=== PATIENT | male | born 1960 | race American Indian/Alaskan Native ===

== ENCOUNTER 2016-11-15 13:59 | Emergency (ER) | payer MEDICAID ==
[2016-11-15 14:26] VITALS: BP 169/121
[2016-11-15] MEDS ORDERED: ZOFRAN ODT PO ONE (16:38)
[2016-11-15] MEDS ORDERED: NORCO 5/325 PO ONE (16:39)
--- NOTE | 2016-11-15 16:39 | Emergency Department Report ---
ED Back Pain/Injury HPI - General Chief Complaint: Back Pain/Injury Stated Complaint: BACK PAIN Time Seen by Provider: 11/15/16 16:29 Source: patient Limitations: No Limitations - History of Present Illness Initial Comments: 56-year-old male past medical history hypertension, chronic lower back pain presents with complaint of 2-3 days of acute on chronic lower back pain. Patient denies any saddle paresthesias any nausea or vomiting any dysuria or increased urinary frequency. Patient states he was taking [id number] medicines with minimal relief of his pain. Patient is ambulatory without assistance. MD Complaint: back pain Onset/Timin -: days(s) Place: home Radiation: none Severity scale (0 -10): 7 Quality: dull, aching Consistency: constant Improves With: immobilization Worsens With: movement Context: while lifting, turning/twisting, bending - Related Data Previous Rx's Medication Instructions Recorded Last Taken Type Cyclobenzaprine [Flexeril 10mg] 10 mg PO TID PRN #14 tablet 10/27/13 Unknown Rx Docusate Sodium [Colace] 100 mg PO BID PRN #20 capsule 07/10/14 Unknown Rx methOCARBAMOL [Robaxin] 500 mg PO BID #14 tab 07/10/14 Unknown Rx traMADol [Ultram 50 MG tab] 50 mg PO Q4HR PRN #20 tablet 07/10/14 Unknown Rx ALBUTEROL Inhaler [Proair] 2 puff IH QID PRN #1 inhalation 09/04/15 Unknown Rx Amoxicillin [Trimox CAP] 500 mg PO BID #14 capsule 09/04/15 Unknown Rx Benzonatate [Tessalon Perles] 100 mg PO Q8HR #30 capsule 09/04/15 Unknown Rx amLODIPine [Norvasc] 5 mg PO DAILY #90 tab 09/04/15 Unknown Rx Cyclobenzaprine [Flexeril] 10 mg PO TID PRN #12 tablet 11/15/16 Unknown Rx HYDROcodone/APAP 5-325 [[place] 1 each PO Q6HR PRN #15 tablet 11/15/16 Unknown Rx 5/325] Naproxen [Naprosyn TAB] 500 mg PO BID #30 tablet 11/15/16 Unknown Rx Allergies Allergy/AdvReac Type Severity Reaction Status Date / Time No Known Allergies Allergy Unverified 10/27/13 15:21 ED Review of Systems ROS: Stated complaint: BACK PAIN Other details as noted in HPI Constitutional: denies: chills, fever Eyes: denies: eye pain, eye discharge, vision change ENT: denies: ear pain, throat pain Respiratory: denies: cough, shortness of breath, wheezing Cardiovascular: denies: chest pain, palpitations Endocrine: no symptoms reported Gastrointestinal: denies: abdominal pain, nausea, diarrhea Genitourinary: denies: urgency, dysuria Musculoskeletal: as per HPI, back pain. denies: joint swelling, arthralgia Skin: denies: rash, lesions Neurological: denies: headache, weakness, paresthesias Psychiatric: denies: anxiety, depression Hematological/Lymphatic: denies: easy bleeding, easy bruising ED Past Medical Hx - Past Medical History Previous Medical History?: Yes Hx Hypertension: Yes (non complaint with medication) Additional medical history: Chronic low back pain since 2009 - Surgical History Past Surgical History?: Yes Additional Surgical History: spinal fussion L4,L5: 2009 - Social History Smoking Status: Current Every Day Smoker Substance Use Type: Alcohol - Medications Home Medications: Home Medications Medication Instructions Recorded Confirmed Last Taken Type Cyclobenzaprine [Flexeril 10mg] 10 mg PO TID PRN #14 tablet 10/27/13 Unknown Rx Docusate Sodium [Colace] 100 mg PO BID PRN #20 capsule 07/10/14 Unknown Rx methOCARBAMOL [Robaxin] 500 mg PO BID #14 tab 07/10/14 Unknown Rx traMADol [Ultram 50 MG tab] 50 mg PO Q4HR PRN #20 tablet 07/10/14 Unknown Rx ALBUTEROL Inhaler [Proair] 2 puff IH QID PRN #1 inhalation 09/04/15 Unknown Rx Amoxicillin [Trimox CAP] 500 mg PO BID #14 capsule 09/04/15 Unknown Rx Benzonatate [Tessalon Perles] 100 mg PO Q8HR #30 capsule 09/04/15 Unknown Rx amLODIPine [Norvasc] 5 mg PO DAILY #90 tab 09/04/15 Unknown Rx Cyclobenzaprine [Flexeril] 10 mg PO TID PRN #12 tablet 11/15/16 Unknown Rx HYDROcodone/APAP 5-325 [[place] 1 each PO Q6HR PRN #15 tablet 11/15/16 Unknown Rx 5/325] Naproxen [Naprosyn TAB] 500 mg PO BID #30 tablet 11/15/16 Unknown Rx ED Physical Exam - General Limitations: No Limitations General appearance: alert, in no apparent distress - Head Head exam: Present: atraumatic, normocephalic - Eye Eye exam: Present: normal appearance, PERRL, EOMI - ENT ENT exam: Present: mucous membranes moist - Neck Neck exam: Present: normal inspection, full ROM - Respiratory Respiratory exam: Present: normal lung sounds bilaterally. Absent: respiratory distress - Cardiovascular Cardiovascular Exam: Present: regular rate, normal rhythm. Absent: systolic murmur, diastolic murmur, rubs, gallop - GI/Abdominal GI/Abdominal exam: Present: soft, normal bowel sounds - Rectal Rectal exam: Present: deferred - Extremities Exam Extremities exam: Present: normal inspection - Back Exam Back exam: Present: normal inspection - Expanded Back Exam Expanded Back exam: Positive Straight Leg Raise: Left (positive at 30) - Neurological Exam Neurological exam: Present: alert, oriented X3, CN II-XII intact, normal gait - Expanded Neurological Exam Expanded Patient oriented to: Present: person, place, time Cranial nerves: EOM's Intact: Normal Motor strength exam: RUE: 5, LUE: 5, RLE: 5, LLE: 5 DTR: knee (R): 3+, knee (L): 3+ Best Eye Response ([place]): (4) open spontaneously Best Motor Response ([place]): (6) obeys commands Best Verbal Response ([place]): (5) oriented [place] Total: 15 - Psychiatric Psychiatric exam: Present: normal affect, normal mood - Skin Skin exam: Present: warm, dry, intact, normal color. Absent: rash ED Course Vital Signs 11/15/16 11/15/16 14:20 18:46 Temperature 98.4 F Pulse Rate 95 H 80 Respiratory 24 18 Rate Blood Pressure 169/121 O2 Sat by Pulse 98 99 Oximetry ED Medical Decision Making - Medical Decision Making A/P: Acute on chronic lower back pain 1- CT report consistent with chronic degenerative changes and L-spine region 2- patient feels significant relief with analgesics 3-follow up with primary care and spine surgery Critical care attestation.: If time is entered above; I have spent that time in minutes in the direct care of this critically ill patient, excluding procedure time. ED Disposition Clinical Impression: Renal colic on right side Lower back pain Qualifiers: Chronicity: acute Back pain laterality: bilateral Sciatica presence: without sciatica Qualified Code(s): M54.5 - Low back pain Disposition: TO HOME OR SELFCARE Is pt being admited?: No Does the pt Need Aspirin: No Condition: Stable Instructions: Acute Low Back Pain (ED), Chronic Back Pain (ED), Back Pain (ED) Prescriptions: Cyclobenzaprine [Flexeril] 10 mg PO TID PRN #12 tablet PRN Reason: Muscle Spasm HYDROcodone/APAP 5-325 [[place] 5/325] 1 each PO Q6HR PRN #15 tablet PRN Reason: Pain Naproxen [Naprosyn TAB] 500 mg PO BID #30 tablet Referrals: ELIZA MONGE MD [Staff Physician] - 3-5 Days BHARAT HOLLEY MD [Staff Physician] - 3-5 Days Forms: Work/School Release Form(ED)
--- NOTE | 2016-11-15 17:41 | Cat Scan Report ---
FINAL REPORT PROCEDURE: CT ABDOMEN PELVIS WO CON TECHNIQUE: Computerized axial tomography of the abdomen and pelvis was performed without intravenous contrast. This study is performed without intravascular contrast material and its sensitivity for abdominal and pelvic pathology, including neoplasms, inflammation, abscess, free fluid, thrombosis, arterial dissection and infarction, is reduced compared with a contrast enhanced study. HISTORY: Possible right sided renal stone. Lumbar spine surgery. COMPARISON: No prior studies are available for comparison. FINDINGS: Visualized lower thorax: Bibasilar ground-glass opacities with air trapping. Liver: Mild hepatomegaly. Mild low-attenuation of the liver. Spleen: Small splenule. Gallbladder and biliary system: Subtle dependent high attenuation in the gallbladder. Pancreas: Normal. Adrenals: 12 millimeter low-attenuation left adrenal nodule. Kidneys: Normal. GI tract: Small hiatal hernia. Normal caliber appendix. Focally air-filled distended sigmoid colon. Lymph nodes and mesentery: Small scattered mesenteric lymph nodes. Vasculature: Mild atherosclerosis. Bladder: Normal. Reproductive organs: Mild prostatic enlargement. Peritoneum: No free fluid. Musculoskeletal structures: L3-4 and L4-5 anterior fusion with disc spacer. Slight age terminal L3 compression. Slight irregularity and osteophytes of the superior L3 endplate. Small multilevel osteophytes throughout the thoracic lumbar spine. Mild thecal sac effacement at the disc level at L L3-4 and L4-5. Mild diffuse disc bulge at L5-S1. Slight L3-4 and L4-5 canal stenosis. L3-4 mild foraminal narrowing, to a slightly lesser degree at L4-5 which may be slightly more left-sided. L5-S1 mild facet arthropathy. Mild degenerative changes of the sacroiliac joints with mild sclerosis. Mild narrowing and osteophytes of the bilateral hip joints. Other: Pelvic phleboliths. IMPRESSION: No CT evidence of renal/ureteral stone or obstruction. Bibasilar ground-glass opacities with mild air trapping, consider pneumonitis. Mild hepatomegaly with fatty infiltration of the liver. Subtle dependent high attenuation in the gallbladder, consider right upper quadrant ultrasound. Low-attenuation left adrenal nodule, likely adenoma. Consider adrenal protocol MRI with inphase and out of phase imaging if there is continued clinical concern and patient has no contraindication to MRI. Small hiatal hernia. Focally air-filled distended sigmoid colon, likely normal peristalsis. Consider further evaluation including contrasted CT scan or colonoscopy if there is continued clinical concern. Degenerative and postsurgical changes of the lumbar spine as above. Mild degenerative changes of the sacroiliac joints with sclerosis, also consider mild superimposed sacroiliitis. Other incidental findings as above.
[2016-11-15 17:47] LABS: Bilirubin,Urine NEG (Negative); Blood,Urine NEG (Negative); Ketones,Urine NEG (Negative); Leukocyte Esterase,Urine NEG (Negative); Nitrite,Urine NEG (Negative); Urobilinogen,Urine < 2.0 mg/dL (<2.0)
== END 2016-11-15 18:46 | disposition home or self-care (01) ==
LOC: ED 13:59
DX: M54.5 Low back pain (principal); I10 Essential (primary) hypertension; F17.200 Nicotine dependence, unspecified, uncomplicated; G89.29 Other chronic pain; M43.27 Fusion of spine, lumbosacral region
CPT/HCPCS: 74176; 81001; Q0162

== ENCOUNTER 2019-01-01 12:52 | Inpatient (IN) | payer MEDICAID, OTHER ==
--- NOTE | 2019-01-01 13:45 | Event Note ---
ED Screening Note Date of service: 01/01/19 Time: 13:42 ED Screening Note: 58 y o male presents with freq urination, polydipsia and intermittent dizziness This initial assessment/diagnostic orders/clinical plan/treatment(s) is/are subject to change based on patients health status, clinical progression and re- assessment by fellow clinical providers in the ED. Further treatment and workup at subsequent clinical providers discretion. Patient/guardian urged not to elope from the ED as their condition may be serious if not clinically assessed and managed. Initial orders include: labs, ua fs
[2019-01-01] MEDS ORDERED: SODIUM CHLORIDE 0.9% 1000 ML 1,000 ML IV ONE ×3 (14:39→16:15)
[2019-01-01 14:40] LABS: Bilirubin,Urine NEG (Negative); Blood,Urine NEG (Negative); Color,Urine Yellow (Yellow); Mucus,Urine FEW /HPF; Protein,Urine <15 mg/dL mg/dL (Negative); Urobilinogen,Urine < 2.0 mg/dL (<2.0); WBC,Urine < 1.0 /HPF (0.0-6.0)
[2019-01-01 14:43] LABS: RBC,Urine < 1.0 /HPF (0.0-6.0)
[2019-01-01 14:46] LABS: Hematocrit 50.6 % (35.5-45.6); Hemoglobin 16.8 gm/dl (11.8-15.2); Mean Corpuscular HGB Conc 33 % (32-34); Mean Corpuscular Volume 88 fl (84-94); Red Blood Count 5.72 M/mm3 (3.65-5.03)
[2019-01-01 15:35] LABS: Alanine Aminotransferase 47 units/L (7-56); Albumin 4.7 g/dL (3.9-5); BUN/Creatinine Ratio 28; Blood Urea Nitrogen 33 mg/dL (9-20); Calcium 9.8 mg/dL (8.4-10.2); Hemolysis Index 40
[2019-01-01] MEDS ORDERED: INSULIN REGULAR, HUMAN 100 UNITS/1 ML IV ONE (16:15)
--- NOTE | 2019-01-01 16:30 | Emergency Department Report ---
ED General Adult HPI - General Chief complaint: Dizziness Stated complaint: POSS POISON Time Seen by Provider: 01/01/19 13:39 Source: patient Mode of arrival: Ambulatory Limitations: No Limitations - History of Present Illness Initial comments: Patient is a 58-year-old Citizen Of The [place] male with a past history of alcohol abuse who is here secondary to some dizziness. Patient states decreased appetite mild headache and some blurred vision for the past 2-3 weeks. Patient also is complaining of some 18 pound weight loss over the two-week period. Patient had some urinary frequency without dysuria and increased thirst. Patient has a history of being told he is borderline diabetic with [facility] Patient attributed his symptoms to possible alcohol withdrawal. Patient has not had any alcohol for last 2-3 weeks. Patient has a history of heavy drinking. - Related Data Previous Rx's Medication Instructions Recorded Last Taken Type Cyclobenzaprine [Flexeril 10mg] 10 mg PO TID PRN #14 tablet 10/27/13 Unknown Rx Docusate Sodium [Colace] 100 mg PO BID PRN #20 capsule 07/10/14 Unknown Rx methOCARBAMOL [Robaxin] 500 mg PO BID #14 tab 07/10/14 Unknown Rx traMADol [Ultram 50 MG tab] 50 mg PO Q4HR PRN #20 tablet 07/10/14 Unknown Rx ALBUTEROL Inhaler (OR & NICU) 2 puff IH QID PRN #1 inhalation 09/04/15 Unknown Rx [Proair] Amoxicillin [Trimox CAP] 500 mg PO BID #14 capsule 09/04/15 Unknown Rx Benzonatate [Tessalon Perles] 100 mg PO Q8HR #30 capsule 09/04/15 Unknown Rx amLODIPine [Norvasc] 5 mg PO DAILY #90 tab 09/04/15 Unknown Rx Cyclobenzaprine [Flexeril] 10 mg PO TID PRN #12 tablet 11/15/16 Unknown Rx HYDROcodone/APAP 5-325 [[place] 1 each PO Q6HR PRN #15 tablet 11/15/16 Unknown Rx 5/325] Naproxen [Naprosyn TAB] 500 mg PO BID #30 tablet 11/15/16 Unknown Rx Allergies Allergy/AdvReac Type Severity Reaction Status Date / Time No Known Allergies Allergy Unverified 10/27/13 15:21 ED Review of Systems ROS: Stated complaint: POSS POISON Other details as noted in HPI Comment: All other systems reviewed and negative ED Past Medical Hx - Past Medical History Hx Hypertension: Yes (non complaint with medication) Hx Diabetes: Yes (BOARDERLINE) Additional medical history: Chronic low back pain since 2009 - Surgical History Additional Surgical History: spinal fussion L4,L5: 2009 - Social History Smoking Status: Current Every Day Smoker Substance Use Type: None - Medications Home Medications: Home Medications Medication Instructions Recorded Confirmed Last Taken Type Cyclobenzaprine [Flexeril 10mg] 10 mg PO TID PRN #14 tablet 10/27/13 Unknown Rx Docusate Sodium [Colace] 100 mg PO BID PRN #20 capsule 07/10/14 Unknown Rx methOCARBAMOL [Robaxin] 500 mg PO BID #14 tab 07/10/14 Unknown Rx traMADol [Ultram 50 MG tab] 50 mg PO Q4HR PRN #20 tablet 07/10/14 Unknown Rx ALBUTEROL Inhaler (OR & NICU) 2 puff IH QID PRN #1 inhalation 09/04/15 Unknown Rx [Proair] Amoxicillin [Trimox CAP] 500 mg PO BID #14 capsule 09/04/15 Unknown Rx Benzonatate [Tessalon Perles] 100 mg PO Q8HR #30 capsule 09/04/15 Unknown Rx amLODIPine [Norvasc] 5 mg PO DAILY #90 tab 09/04/15 Unknown Rx Cyclobenzaprine [Flexeril] 10 mg PO TID PRN #12 tablet 11/15/16 Unknown Rx HYDROcodone/APAP 5-325 [[place] 1 each PO Q6HR PRN #15 tablet 11/15/16 Unknown Rx 5/325] Naproxen [Naprosyn TAB] 500 mg PO BID #30 tablet 11/15/16 Unknown Rx ED Physical Exam - General Limitations: No Limitations General appearance: alert, in no apparent distress - Head Head exam: Present: atraumatic, normocephalic - Eye Eye exam: Present: normal appearance - ENT ENT exam: Present: mucous membranes moist - Neck Neck exam: Present: normal inspection - Respiratory Respiratory exam: Present: normal lung sounds bilaterally. Absent: respiratory distress, wheezes, rales, rhonchi - Cardiovascular Cardiovascular Exam: Present: regular rate, normal rhythm, normal heart sounds. Absent: systolic murmur, diastolic murmur, rubs, gallop - GI/Abdominal GI/Abdominal exam: Present: soft, normal bowel sounds. Absent: distended, tenderness, guarding, rebound - Rectal Rectal exam: Present: deferred - Extremities Exam Extremities exam: Present: normal inspection - Back Exam Back exam: Present: normal inspection - Neurological Exam Neurological exam: Present: alert, oriented X3 - Psychiatric Psychiatric exam: Present: normal affect, normal mood - Skin Skin exam: Present: warm, dry, intact, normal color. Absent: rash ED Course Vital Signs 01/01/19 13:38 Temperature 98.9 F Pulse Rate 114 H Respiratory 18 Rate Blood Pressure 136/90 O2 Sat by Pulse 96 Oximetry ED Medical Decision Making - Lab Data Result diagrams: 01/01/19 13:51 01/01/19 13:51 Lab Results 01/01/19 01/01/19 01/01/19 Range/Units 13:34 13:51 13:51 RBC 5.72 H (3.65-5.03) M/mm3 Hgb 16.8 H (11.8-15.2) gm/dl Hct 50.6 H (35.5-45.6) % MCV 88 (84-94) fl MCH 29 (28-32) pg MCHC 33 (32-34) % RDW 13.0 L (13.2-15.2) % VBG pH (7.320-7.420) Sodium 122 L (137-145) mmol/L Potassium 5.3 H (3.6-5.0) mmol/L Chloride 80.0 L (98-107) mmol/L Carbon Dioxide 16 L (22-30) mmol/L Anion Gap 31 mmol/L BUN 33 H (9-20) mg/dL Creatinine 1.2 (0.8-1.5) mg/dL Estimated GFR > 60 ml/min BUN/Creatinine Ratio 28 % Glucose 1000 H* (75-100) mg/dL POC Glucose (70-105) Calcium 9.8 (8.4-10.2) mg/dL Total Bilirubin 0.40 (0.1-1.2) mg/dL AST 36 (5-40) units/L ALT 47 (7-56) units/L Alkaline Phosphatase 110 (35-129) units/L Total Protein 8.4 H (6.3-8.2) g/dL Albumin 4.7 (3.9-5) g/dL Albumin/Globulin Ratio 1.3 % Urine Color Yellow (Yellow) Urine Turbidity Clear (Clear) Urine pH 5.0 (5.0-7.0) Ur Specific [employer] 1.023 (1.003-1.030) Urine Protein <15 mg/dl (Negative) mg/dL Urine Glucose (UA) >=500 (Negative) mg/dL Urine Ketones Tr (Negative) mg/dL Urine Blood Neg (Negative) Urine Nitrite Neg (Negative) Urine Bilirubin Neg (Negative) Urine Urobilinogen < 2.0 (<2.0) mg/dL Ur Leukocyte Esterase Neg (Negative) Urine WBC (Auto) < 1.0 (0.0-6.0) /HPF Urine RBC (Auto) < 1.0 (0.0-6.0) /HPF Urine Mucus Few /HPF 01/01/19 01/01/19 Range/Units 14:45 15:06 RBC (3.65-5.03) M/mm3 Hgb (11.8-15.2) gm/dl Hct (35.5-45.6) % MCV (84-94) fl MCH (28-32) pg MCHC (32-34) % RDW (13.2-15.2) % VBG pH 7.375 (7.320-7.420) Sodium (137-145) mmol/L Potassium (3.6-5.0) mmol/L Chloride (98-107) mmol/L Carbon Dioxide (22-30) mmol/L Anion Gap mmol/L BUN (9-20) mg/dL Creatinine (0.8-1.5) mg/dL Estimated GFR ml/min BUN/Creatinine Ratio % Glucose (75-100) mg/dL POC Glucose > 500 H (70-105) Calcium (8.4-10.2) mg/dL Total Bilirubin (0.1-1.2) mg/dL AST (5-40) units/L ALT (7-56) units/L Alkaline Phosphatase (35-129) units/L Total Protein (6.3-8.2) g/dL Albumin (3.9-5) g/dL Albumin/Globulin Ratio % Urine Color (Yellow) Urine Turbidity (Clear) Urine pH (5.0-7.0) Ur Specific [employer] (1.003-1.030) Urine Protein (Negative) mg/dL Urine Glucose (UA) (Negative) mg/dL Urine Ketones (Negative) mg/dL Urine Blood (Negative) Urine Nitrite (Negative) Urine Bilirubin (Negative) Urine Urobilinogen (<2.0) mg/dL Ur Leukocyte Esterase (Negative) Urine WBC (Auto) (0.0-6.0) /HPF Urine RBC (Auto) (0.0-6.0) /HPF Urine Mucus /HPF - Medical Decision Making Patient was started on IV hydration secondary to a blood sugar greater than 500 by Accu-Chek. Insulin was withheld until the potassium level returned. Blood sugar was thousand and potassium is within normal limits. Patient was given IV insulin and will be admitted to the hospitalist service. Critical Care Time: Yes (30) Critical care attestation.: If time is entered above; I have spent that time in minutes in the direct care of this critically ill patient, excluding procedure time. ED Disposition Clinical Impression: Hyperosmolarity due to secondary diabetes mellitus, Hyperglycemia, Acute renal insufficiency, Dehydration Disposition: DC-09 OP ADMIT IP TO THIS HOSP Is pt being admited?: Yes Does the pt Need Aspirin: No Condition: Stable Instructions: Diabetes Mellitus Type 2 in Adults (ED) Referrals: PRIMARY CARE, [Primary Care Provider] - 3-5 Days Time of Disposition: 16:30
[2019-01-01] MEDS ORDERED: ALBUTEROL 2.5 MG/3 ML NEBU IH PRN (16:42)
[2019-01-01] MEDS ORDERED: DEXTROSE 50% IN WATER (25GM) 50 ML SYRINGE IV PRN (16:42)
[2019-01-01 16:44] LABS: Basophils % (Manual) 0 % (0.0-1.8); Total Cells Counted 100
[2019-01-01 16:45] LABS: Anisocytosis 1+; Poikilocytosis Few
[2019-01-01] MEDS ORDERED: SODIUM BICARB 8.4% 50 MEQ/50 ML SYRINGE IV ONE (16:46)
--- NOTE | 2019-01-01 16:46 | History and Physical Report ---
History of Present Illness Chief complaint: I think mehreen been poisoned History of present illness: 58 YO Male with DM, Obesity, HTN, LDD complicated by Chronic Pain presents to ED for evaluation. Pt states that he has been feeling "sick" for the past 2-3 weeks. Pt states that he has experienced polydipsia, polyuria, and polyphagia, dizziness, nausea, and decreased appetite over the past 1month with progressively worsening symptoms over the past 2-3 weeks. Pt states that he thinks he has been poisoned because he is so thirsty, and urinates frequently. Pt also acknowledges 18obs unintentional weight loss over the past 1 month. Pt transported to [facility] via private vehicle. Pt seen and evaluated in ED and found to have DKA. Pt admitted to ICU and initiated on DKA protocol. Pt also treated with IVF resuscitation therapy and IV bicarbonate therapy. PT denies fever, chills, CP, Palpitations, Trauma, BRBPR, Productive cough, skin rash, or recent ill contacts. No prior admission for review. All listed medication reconciled at time of admission. Past History Past Medical History: diabetes, hypertension, other (LDD, Chronic Back pain) Social history: smoking, alcohol abuse Family history: diabetes, hypertension Medications and Allergies Allergies Allergy/AdvReac Type Severity Reaction Status Date / Time No Known Allergies Allergy Unverified 10/27/13 15:21 Home Medications Medication Instructions Recorded Confirmed Last Taken Type Cyclobenzaprine [Flexeril 10mg] 10 mg PO TID PRN #14 tablet 10/27/13 Unknown Rx Docusate Sodium [Colace] 100 mg PO BID PRN #20 capsule 07/10/14 Unknown Rx methOCARBAMOL [Robaxin] 500 mg PO BID #14 tab 07/10/14 Unknown Rx traMADol [Ultram 50 MG tab] 50 mg PO Q4HR PRN #20 tablet 07/10/14 Unknown Rx ALBUTEROL Inhaler (OR & NICU) 2 puff IH QID PRN #1 inhalation 09/04/15 Unknown Rx [Proair] Amoxicillin [Trimox CAP] 500 mg PO BID #14 capsule 09/04/15 Unknown Rx Benzonatate [Tessalon Perles] 100 mg PO Q8HR #30 capsule 09/04/15 Unknown Rx amLODIPine [Norvasc] 5 mg PO DAILY #90 tab 09/04/15 Unknown Rx Cyclobenzaprine [Flexeril] 10 mg PO TID PRN #12 tablet 11/15/16 Unknown Rx HYDROcodone/APAP 5-325 [[place] 1 each PO Q6HR PRN #15 tablet 11/15/16 Unknown Rx 5/325] Naproxen [Naprosyn TAB] 500 mg PO BID #30 tablet 11/15/16 Unknown Rx Active Meds: Active Medications Albuterol (Proventil) 2.5 mg IH Q3HRT PRN PRN Reason: Shortness Of Breath Dextrose (D50w (25gm) Syringe) 0 ml IV ONCE PRN PRN Reason: Hypoglycemia Sodium Chloride (Nacl 0.9% 1000 Ml) 1,000 mls @ 999 mls/hr IV BOLUS ONE Stop: 01/01/19 17:15 Last Admin: 01/01/19 16:37 Dose: 999 mls/hr Documented by: Insulin Human Regular 100 (units/ Sodium Chloride) 100 mls @ 1 mls/hr IV TITR LIAN; Protocol Sodium Chloride (Sodium Chloride Flush Syringe 10 Ml) 10 ml IV BID LIAN Sodium Chloride (Sodium Chloride Flush Syringe 10 Ml) 10 ml IV PRN PRN PRN Reason: LINE FLUSH Review of Systems Constitutional: weight loss, no weight gain, no fever, no chills, no sweats Ears, nose, mouth and throat: no ear pain, no ear discharge, no tinnitis, no decreased hearing, no nose pain, no nasal congestion, no nasal discharge Cardiovascular: no chest pain, no orthopnea, no palpitations, no rapid/irregular heart beat Respiratory: no cough, no cough with sputum, no excessive sputum, no hemoptysis, no shortness of breath, no dyspnea on exertion Gastrointestinal: nausea, no vomiting, no diarrhea, no constipation, no change in bowel habits Genitourinary Male: no dysuria, no hematuria, no flank pain, no discharge, no urinary frequency, no urinary hesitancy, no nocturia Rectal: no pain, no incontinence, no bleeding Musculoskeletal: no neck stiffness, no neck pain, no shooting arm pain, no arm numbness/tingling, no low back pain Integumentary: no rash, no pruritis, no redness, no sores, no wounds, no jaundice Neurological: no transient paralysis, no paralysis, no weakness, no parathesias, no numbness, no tingling, no seizures Psychiatric: no anxiety, no memory loss, no change in sleep habits, no sleep disturbances, no insomnia Endocrine: polyphagia, excessive thirst, polydipsia, polyuria, nocturia, weight change, no cold intolerance, no heat intolerance, no excessive sweating, no flushing Hematologic/Lymphatic: no easy bruising, no easy bleeding, no lymphadenopathy, no lymphedema Allergic/Immunologic: no urticaria, no allergic rhinitis, no wheezing, no persistent infections, no anaphylaxis, no angioedema Exam - Constitutional Vitals: Temp Pulse Resp BP Pulse Ox 98.9 F 114 H 18 136/90 96 01/01/19 13:38 01/01/19 13:38 01/01/19 13:38 01/01/19 13:38 01/01/19 13:38 General appearance: Present: mild distress, obese - EENT Eyes: Present: PERRL ENT: hearing intact, clear oral mucosa - Neck Neck: Present: supple, normal ROM - Respiratory Respiratory effort: normal Respiratory: bilateral: CTA - Cardiovascular Heart Sounds: Present: S1 & S2. Absent: rub, click - Extremities Extremities: pulses symmetrical, No edema Peripheral Pulses: within normal limits - Abdominal General gastrointestinal: Present: soft, non-tender, non-distended, normal bowel sounds Male genitourinary: Present: normal - Integumentary Integumentary: Present: clear, warm, dry - Musculoskeletal Musculoskeletal: gait normal, strength equal bilaterally - Psychiatric Psychiatric: appropriate mood/affect, intact judgment & insight - Neurologic Neurologic: CNII-XII intact, moves all extremities Results - Labs CBC & Chem 7: 01/01/19 13:51 01/01/19 18:20 Labs: Abnormal lab results 01/01/19 01/01/19 01/01/19 Range/Units 13:51 13:51 14:45 RBC 5.72 H (3.65-5.03) M/mm3 Hgb 16.8 H (11.8-15.2) gm/dl Hct 50.6 H (35.5-45.6) % RDW 13.0 L (13.2-15.2) % Monocytes % (Manual) 11.0 H (0.0-7.3) % Seg Neutrophils # Man 0.0 L (1.8-7.7) K/mm3 Lymphocytes # (Manual) 0.0 L (1.2-5.4) K/mm3 Sodium 122 L (137-145) mmol/L Potassium 5.3 H (3.6-5.0) mmol/L Chloride 80.0 L (98-107) mmol/L Carbon Dioxide 16 L (22-30) mmol/L BUN 33 H (9-20) mg/dL Glucose 1000 H* (75-100) mg/dL POC Glucose > 500 H (70-105) Total Protein 8.4 H (6.3-8.2) g/dL Assessment and Plan - Patient Problems (1) DKA (diabetic ketoacidosis) Current Visit: Yes Status: Acute Qualifiers: Diabetes mellitus type: type 1 Plan to address problem: DKA Protocol: Admit to ICU, Insulin drip, IVF resuscitation therapy, serial bmp, monitor anion gap, monitor uop q shift, The high probability of a clinically significant, sudden or life threatening deterioration of the [Endocrine, neuro, renal] system(s) required my full and direct attention, intervention and personal management. The aggregate critical care time was [65] minutes. This time is in addition to time spent performing reported procedures but includes the following: [x] Data Review and interpretation [x] Patient assessment and monitoring of vital signs [x] Documentation [x] Medication orders and management (2) Acidosis Current Visit: Yes Status: Acute Plan to address problem: IV bicarbonate therapy, serial bmp, treat DKA (3) Obesity (BMI 30.0-34.9) Current Visit: Yes Status: Acute Plan to address problem: Balanced diet, increased physical activity at discharge. (4) DVT prophylaxis Current Visit: Yes Status: Acute Plan to address problem: SCD to BLE while in bed, Pt ambulatory
[2019-01-01] MEDS ORDERED: DOCUSATE SODIUM 100 MG CAP PO PRN (16:47)
[2019-01-01] MEDS ORDERED: CYCLOBENZAPRINE 10 MG TAB PO PRN (16:47)
[2019-01-01 16:50] LABS: Platelet Count 139 K/mm3 (140-440)
[2019-01-01] MEDS ORDERED: traMADol 50 MG TAB PO PRN (16:52)
[2019-01-01] MEDS ORDERED: INSULIN REGULAR, HUMAN 100 UNITS in SODIUM CHLORIDE 0.9% 99 ML IV SCH (17:00)
[2019-01-01 17:51] LABS: BUN/Creatinine Ratio 29; Blood Urea Nitrogen 29 mg/dL (9-20); Hemolysis Index 23
[2019-01-01 18:43] LABS: BUN/Creatinine Ratio 31; Blood Urea Nitrogen 28 mg/dL (9-20); Calcium 8.8 mg/dL (8.4-10.2); Hemolysis Index 91
[2019-01-01 21:13] LABS: BUN/Creatinine Ratio 28; Blood Urea Nitrogen 22 mg/dL (9-20); Calcium 9.2 mg/dL (8.4-10.2); Hemolysis Index 14
[2019-01-01] MEDS: HYDROcodone/ACETAMINOPHEN 5-325 MG TAB PO PRN (22:46)
[2019-01-01] MEDS: NAPROXEN 500 MG TAB PO SCH (22:57)
[2019-01-01] MEDS: BENZONATATE 100 MG CAP PO SCH (23:00)
[2019-01-02 01:51] LABS: BUN/Creatinine Ratio 28; Blood Urea Nitrogen 22 mg/dL (9-20); Calcium 9.1 mg/dL (8.4-10.2); Hemolysis Index 11
[2019-01-02] MEDS: BENZONATATE 100 MG CAP PO SCH ×3 (06:29→23:23)
[2019-01-02] MEDS: HYDROcodone/ACETAMINOPHEN 5-325 MG TAB PO PRN ×2 (07:06→23:22)
[2019-01-02 09:08] LABS: BUN/Creatinine Ratio 31; Blood Urea Nitrogen 22 mg/dL (9-20); Calcium 8.5 mg/dL (8.4-10.2); Hemolysis Index 3
[2019-01-02] MEDS: amLODIPine 5 MG TAB PO SCH (10:41)
[2019-01-02] MEDS: NAPROXEN 500 MG TAB PO SCH ×2 (10:42→23:30)
--- NOTE | 2019-01-02 11:19 | Consultation ---
History of Present Illness Consult date: 01/02/19 Requesting physician: ALAN MATIAS Reason for consult: other (DKA) History of present illness: PULMONARY/CCM CONSULT NOTE (full dictation # [id number]) Please see dictated notes for full details Past History Past Medical History: diabetes, hypertension, other (LDD, Chronic Back pain) Social history: smoking, alcohol abuse Family history: diabetes, hypertension Medications and Allergies Allergies Allergy/AdvReac Type Severity Reaction Status Date / Time No Known Allergies Allergy Unverified 10/27/13 15:21 Home Medications Medication Instructions Recorded Confirmed Last Taken Type Carvedilol [Coreg] 25 mg PO BID 01/02/19 01/02/19 01/01/19 History HYDROcodone/APAP 10-325 [[place] 1 each PO Q8HR PRN 01/02/19 01/02/19 10/30/18 History 10/325] Ibuprofen [Motrin] 800 mg PO Q8HR PRN 01/02/19 01/02/19 01/01/19 History hydroCHLOROthiazide [HCTZ] 25 mg PO QDAY 01/02/19 01/02/19 01/01/19 History Active Meds: Active Medications Acetaminophen/Hydrocodone Bitart ([place] 5/325) 1 each PO Q6H PRN PRN Reason: Pain, Moderate (4-6) Last Admin: 01/02/19 07:06 Dose: 1 each Documented by: Albuterol (Proventil) 2.5 mg IH Q3HRT PRN PRN Reason: Shortness Of Breath Amlodipine Besylate (Norvasc) 5 mg PO DAILY [facility] Last Admin: 01/02/19 10:41 Dose: Not Given Documented by: Benzonatate (Tessalon Perles) 100 mg PO Q8HR LIAN Last Admin: 01/02/19 06:29 Dose: Not Given Documented by: Cyclobenzaprine HCl (Flexeril) 10 mg PO TID PRN PRN Reason: Muscle Spasm Dextrose (D50w (25gm) Syringe) 0 ml IV ONCE PRN PRN Reason: Hypoglycemia Docusate Sodium (Colace) 100 mg PO BID PRN PRN Reason: stool softner Insulin Human Regular 100 (units/ Sodium Chloride) 100 mls @ 1 mls/hr IV TITR LIAN; Protocol Last Titration: 01/02/19 11:10 Dose: 4 units/hr, 4 mls/hr Documented by: Methocarbamol (Robaxin) 500 mg PO BID [facility] Last Admin: 01/02/19 10:41 Dose: Not Given Documented by: Naproxen (Naprosyn) 500 mg PO BID [facility] Last Admin: 01/02/19 10:42 Dose: Not Given Documented by: Sodium Chloride (Sodium Chloride Flush Syringe 10 Ml) 10 ml IV BID [facility] Last Admin: 01/01/19 22:48 Dose: 10 ml Documented by: Sodium Chloride (Sodium Chloride Flush Syringe 10 Ml) 10 ml IV PRN PRN PRN Reason: LINE FLUSH Tramadol HCl (Ultram) 50 mg PO Q6H PRN PRN Reason: Pain, Moderate (4-6) Physical Examination Vital signs: Vital Signs Temp Pulse Resp BP Pulse Ox 98.9 F 114 H 18 136/90 96 01/01/19 13:38 01/01/19 13:38 01/01/19 13:38 01/01/19 13:38 01/01/19 13:38 Results - Laboratory Findings CBC and BMP: 01/01/19 13:51 01/02/19 08:46 Abnormal lab findings: Abnormal Labs 01/01/19 01/01/19 01/01/19 13:51 13:51 14:45 RBC 5.72 H Hgb 16.8 H Hct 50.6 H RDW 13.0 L Plt Count 139 L Monocytes % (Manual) 11.0 H Seg Neutrophils # Man 0.0 L Lymphocytes # (Manual) 0.0 L Sodium 122 L Potassium 5.3 H Chloride 80.0 L Carbon Dioxide 16 L BUN 33 H Creatinine Glucose 1000 H* POC Glucose > 500 H Total Protein 8.4 H 01/01/19 01/01/19 01/01/19 16:54 18:20 18:55 RBC Hgb Hct RDW Plt Count Monocytes % (Manual) Seg Neutrophils # Man Lymphocytes # (Manual) Sodium 124 L 125 L Potassium Chloride 85.8 L 86.8 L Carbon Dioxide 21 L BUN 29 H 28 H Creatinine Glucose 699 H* 684 H* POC Glucose 444 H Total Protein 01/01/19 01/01/19 01/01/19 19:55 20:40 21:12 RBC Hgb Hct RDW Plt Count Monocytes % (Manual) Seg Neutrophils # Man Lymphocytes # (Manual) Sodium 131 L Potassium Chloride 92.1 L Carbon Dioxide BUN 22 H Creatinine Glucose 365 H POC Glucose 361 H 295 H Total Protein 01/01/19 01/01/19 01/02/19 22:16 23:32 00:25 RBC Hgb Hct RDW Plt Count Monocytes % (Manual) Seg Neutrophils # Man Lymphocytes # (Manual) Sodium 133 L Potassium Chloride 93.0 L Carbon Dioxide BUN 22 H Creatinine Glucose 262 H POC Glucose 267 H 261 H Total Protein 01/02/19 01/02/19 01/02/19 00:26 01:17 02:13 RBC Hgb Hct RDW Plt Count Monocytes % (Manual) Seg Neutrophils # Man Lymphocytes # (Manual) Sodium Potassium Chloride Carbon Dioxide BUN Creatinine Glucose POC Glucose 239 H 233 H 224 H Total Protein 01/02/19 01/02/19 01/02/19 03:13 04:12 05:15 RBC Hgb Hct RDW Plt Count Monocytes % (Manual) Seg Neutrophils # Man Lymphocytes # (Manual) Sodium Potassium Chloride Carbon Dioxide BUN Creatinine Glucose POC Glucose 222 H 198 H 192 H Total Protein 01/02/19 01/02/19 01/02/19 06:09 07:11 08:10 RBC Hgb Hct RDW Plt Count Monocytes % (Manual) Seg Neutrophils # Man Lymphocytes # (Manual) Sodium Potassium Chloride Carbon Dioxide BUN Creatinine Glucose POC Glucose 202 H 204 H 149 H Total Protein 01/02/19 01/02/19 01/02/19 08:46 09:19 10:18 RBC Hgb Hct RDW Plt Count Monocytes % (Manual) Seg Neutrophils # Man Lymphocytes # (Manual) Sodium 132 L Potassium Chloride 93.4 L Carbon Dioxide BUN 22 H Creatinine 0.7 L Glucose 200 H POC Glucose 175 H 176 H Total Protein 01/02/19 11:18 RBC Hgb Hct RDW Plt Count Monocytes % (Manual) Seg Neutrophils # Man Lymphocytes # (Manual) Sodium Potassium Chloride Carbon Dioxide BUN Creatinine Glucose POC Glucose 168 H Total Protein
[2019-01-02] MEDS ORDERED: DEXTROSE 50% IN WATER (25GM) 50 ML SYRINGE IV PRN (13:23)
--- NOTE | 2019-01-02 13:34 | Progress Note ---
Assessment and Plan Assessment and plan: DKA. DKA has resolved and anion gap is closed. Patient will be transitioned to long-acting insulin of Lantus 10 units daily. We will also start metformin 500 twice a day. The patient will be transferred to the floor. New DM type II. Check hemoglobin A1c. Continue Lantus and metformin for now. Hypertension. Resume antihypertensive medications of hydrochlorothiazide and Coreg. Chronic pain syndrome. Continue pain medications. Obesity. Patient has been counseled on weight loss. Disposition. As above. History Interval history: No new Issues overnight. Hospitalist Physical - Constitutional Vitals: Temp Pulse Resp BP Pulse Ox 98.0 F 80 13 137/49 95 01/02/19 08:00 01/02/19 11:00 01/02/19 11:00 01/02/19 11:00 01/02/19 11:00 General appearance: Present: mild distress, obese - EENT Eyes: Present: PERRL, EOM intact ENT: hearing intact, clear oral mucosa, dentition normal - Neck Neck: Present: supple, normal ROM - Respiratory Respiratory effort: normal Respiratory: bilateral: CTA - Cardiovascular Rhythm: regular Heart Sounds: Present: S1 & S2. Absent: gallop, rub - Extremities Extremities: no ischemia, No edema, Full ROM - Abdominal General gastrointestinal: soft, non-tender, non-distended, normal bowel sounds - Integumentary Integumentary: Present: clear, warm, dry - Neurologic Neurologic: CNII-XII intact, moves all extremities Results - Labs CBC & Chem 7: 01/01/19 13:51 01/02/19 08:46 Labs: Laboratory Last Values WBC 5.0 K/mm3 (4.5-11.0) 01/01/19 13:51 RBC 5.72 M/mm3 (3.65-5.03) H 01/01/19 13:51 Hgb 16.8 gm/dl (11.8-15.2) H 01/01/19 13:51 Hct 50.6 % (35.5-45.6) H 01/01/19 13:51 MCV 88 fl (84-94) 01/01/19 13:51 MCH 29 pg (28-32) 01/01/19 13:51 MCHC 33 % (32-34) 01/01/19 13:51 RDW 13.0 % (13.2-15.2) L 01/01/19 13:51 Plt Count 139 K/mm3 (140-440) L 01/01/19 13:51 Add Manual Diff Complete 01/01/19 13:51 Total Counted 100 01/01/19 13:51 Seg Neuts % (Manual) 59.0 % (40.0-70.0) 01/01/19 13:51 Band Neutrophils % 0 % 01/01/19 13:51 Lymphocytes % (Manual) 29.0 % (13.4-35.0) 01/01/19 13:51 Reactive Lymphs % (Man) 0 % 01/01/19 13:51 Monocytes % (Manual) 11.0 % (0.0-7.3) H 01/01/19 13:51 Eosinophils % (Manual) 1.0 % (0.0-4.3) 01/01/19 13:51 Basophils % (Manual) 0 % (0.0-1.8) 01/01/19 13:51 Metamyelocytes % 0 % 01/01/19 13:51 Myelocytes % 0 % 01/01/19 13:51 Promyelocytes % 0 % 01/01/19 13:51 Blast Cells % 0 % 01/01/19 13:51 Nucleated RBC % Not Reportable 01/01/19 13:51 Seg Neutrophils # Man 0.0 K/mm3 (1.8-7.7) L 01/01/19 13:51 Band Neutrophils # 0.0 K/mm3 01/01/19 13:51 Lymphocytes # (Manual) 0.0 K/mm3 (1.2-5.4) L 01/01/19 13:51 Abs React Lymphs (Man) 0.0 K/mm3 01/01/19 13:51 Monocytes # (Manual) 0.0 K/mm3 (0.0-0.8) 01/01/19 13:51 Eosinophils # (Manual) 0.0 K/mm3 (0.0-0.4) 01/01/19 13:51 Basophils # (Manual) 0.0 K/mm3 (0.0-0.1) 01/01/19 13:51 Metamyelocytes # 0.0 K/mm3 01/01/19 13:51 Myelocytes # 0.0 K/mm3 01/01/19 13:51 Promyelocytes # 0.0 K/mm3 01/01/19 13:51 Blast Cells # 0.0 K/mm3 01/01/19 13:51 WBC Morphology Not Reportable 01/01/19 13:51 Hypersegmented Neuts Not Reportable 01/01/19 13:51 Hyposegmented Neuts Not Reportable 01/01/19 13:51 Hypogranular Neuts Not Reportable 01/01/19 13:51 Smudge Cells Not Reportable 01/01/19 13:51 Toxic Granulation Not Reportable 01/01/19 13:51 Toxic Vacuolation Not Reportable 01/01/19 13:51 Dohle Bodies Not Reportable 01/01/19 13:51 Pelger-Huet Anomaly Not Reportable 01/01/19 13:51 Elver Rods Not Reportable 01/01/19 13:51 Platelet Estimate Appears normal 01/01/19 13:51 Clumped Platelets Not Reportable 01/01/19 13:51 Plt Clumps, EDTA Not Reportable 01/01/19 13:51 Large Platelets Not Reportable 01/01/19 13:51 Giant Platelets Not Reportable 01/01/19 13:51 Platelet Satelliting Not Reportable 01/01/19 13:51 Plt Morphology Comment Not Reportable 01/01/19 13:51 RBC Morphology Not Reportable 01/01/19 13:51 Dimorphic RBCs Not Reportable 01/01/19 13:51 Polychromasia Not Reportable 01/01/19 13:51 Hypochromasia Not Reportable 01/01/19 13:51 Poikilocytosis Few 01/01/19 13:51 Anisocytosis 1+ 01/01/19 13:51 Microcytosis Not Reportable 01/01/19 13:51 Macrocytosis Not Reportable 01/01/19 13:51 Spherocytes Not Reportable 01/01/19 13:51 Pappenheimer Bodies Not Reportable 01/01/19 13:51 Sickle Cells Not Reportable 01/01/19 13:51 Target Cells Not Reportable 01/01/19 13:51 Tear Drop Cells Not Reportable 01/01/19 13:51 Ovalocytes Not Reportable 01/01/19 13:51 Helmet Cells Not Reportable 01/01/19 13:51 [place] Bodies Not Reportable 01/01/19 13:51 [place] Rings Not Reportable 01/01/19 13:51 [place] Cells Not Reportable 01/01/19 13:51 Bite Cells Not Reportable 01/01/19 13:51 Crenated Cell Not Reportable 01/01/19 13:51 Elliptocytes Not Reportable 01/01/19 13:51 Acanthocytes (Spur) Not Reportable 01/01/19 13:51 Rouleaux Not Reportable 01/01/19 13:51 Hemoglobin C Crystals Not Reportable 01/01/19 13:51 Schistocytes Not Reportable 01/01/19 13:51 Malaria parasites Not Reportable 01/01/19 13:51 Zack Bodies Not Reportable 01/01/19 13:51 Hem Pathologist Commnt No 01/01/19 13:51 VBG pH 7.375 (7.320-7.420) 01/01/19 15:06 Sodium 132 mmol/L (137-145) L 01/02/19 08:46 Potassium 3.7 mmol/L (3.6-5.0) 01/02/19 08:46 Chloride 93.4 mmol/L (98-107) L 01/02/19 08:46 Carbon Dioxide 25 mmol/L (22-30) 01/02/19 08:46 Anion Gap 17 mmol/L 01/02/19 08:46 BUN 22 mg/dL (9-20) H 01/02/19 08:46 Creatinine 0.7 mg/dL (0.8-1.5) L 01/02/19 08:46 Estimated GFR > 60 ml/min 01/02/19 08:46 BUN/Creatinine Ratio 31 % 01/02/19 08:46 Glucose 200 mg/dL (75-100) H 01/02/19 08:46 POC Glucose 174 (70-105) H 01/02/19 13:35 Calcium 8.5 mg/dL (8.4-10.2) 01/02/19 08:46 Phosphorus 3.10 mg/dL (2.5-4.5) 01/01/19 16:54 Magnesium 2.20 mg/dL (1.7-2.3) 01/01/19 16:54 Total Bilirubin 0.40 mg/dL (0.1-1.2) 01/01/19 13:51 AST 36 units/L (5-40) 01/01/19 13:51 ALT 47 units/L (7-56) 01/01/19 13:51 Alkaline Phosphatase 110 units/L (35-129) 01/01/19 13:51 Total Protein 8.4 g/dL (6.3-8.2) H 01/01/19 13:51 Albumin 4.7 g/dL (3.9-5) 01/01/19 13:51 Albumin/Globulin Ratio 1.3 % 01/01/19 13:51 Urine Color Yellow (Yellow) 01/01/19 13:34 Urine Turbidity Clear (Clear) 01/01/19 13:34 Urine pH 5.0 (5.0-7.0) 01/01/19 13:34 Ur Specific [place] 1.023 (1.003-1.030) 01/01/19 13:34 Urine Protein <15 mg/dl mg/dL (Negative) 01/01/19 13:34 Urine Glucose (UA) >=500 mg/dL (Negative) 01/01/19 13:34 Urine Ketones Tr mg/dL (Negative) 01/01/19 13:34 Urine Blood Neg (Negative) 01/01/19 13:34 Urine Nitrite Neg (Negative) 01/01/19 13:34 Urine Bilirubin Neg (Negative) 01/01/19 13:34 Urine Urobilinogen < 2.0 mg/dL (<2.0) 01/01/19 13:34 Ur Leukocyte Esterase Neg (Negative) 01/01/19 13:34 Urine WBC (Auto) < 1.0 /HPF (0.0-6.0) 01/01/19 13:34 Urine RBC (Auto) < 1.0 /HPF (0.0-6.0) 01/01/19 13:34 Urine Mucus Few /HPF 01/01/19 13:34 Active Medications - Current Medications Current Medications: Generic Name Dose Route Start Last Admin Trade Name Freq PRN Reason Stop Dose Admin Acetaminophen/Hydrocodone Bitart 1 each 01/01/19 16:51 01/02/19 07:06 [place] 5/325 PO 1 each Q6H PRN Administration Pain, Moderate (4-6) Amlodipine Besylate 5 mg 01/02/19 10:00 01/02/19 10:41 Norvasc PO Not Given DAILY [facility] Benzonatate 100 mg 01/01/19 22:00 01/02/19 06:29 Tessalon Perles PO Not Given Q8HR [facility] Carvedilol 25 mg 01/02/19 22:00 Coreg PO BID [facility] Cyclobenzaprine HCl 10 mg 01/01/19 16:47 Flexeril PO TID PRN Muscle Spasm Dextrose 50 ml 01/02/19 13:23 D50w (25gm) Syringe IV PRN PRN Hypoglycemia Docusate Sodium 100 mg 01/01/19 16:47 Colace PO BID PRN stool softner Heparin Sodium (Porcine) 5,000 unit 01/02/19 14:00 Heparin SUB-Q Q8HR [facility] Hydrochlorothiazide 25 mg 01/03/19 10:00 Hctz PO QDAY [facility] Sodium Chloride 1,000 mls @ 75 mls/hr 01/02/19 14:00 Nacl 0.9% 1000 Ml IV DIRECT [facility] Insulin Glargine 10 units 01/02/19 14:00 Lantus SUB-Q DAILY [facility] Insulin Human Regular 0 units 01/02/19 16:30 Humulin R SUB-Q ACHS [facility] Protocol Metformin HCl 500 mg 01/02/19 17:00 Glucophage PO BIDDIAB [facility] Methocarbamol 500 mg 01/01/19 22:00 01/02/19 10:41 Robaxin PO Not Given BID [facility] Naproxen 500 mg 01/01/19 22:00 01/02/19 10:42 Naprosyn PO Not Given BID [facility] Sodium Chloride 10 ml 01/01/19 22:00 01/01/19 22:48 Sodium Chloride Flush Syringe 10 Ml IV 10 ml BID [facility] Administration Sodium Chloride 10 ml 01/01/19 16:42 Sodium Chloride Flush Syringe 10 Ml IV PRN PRN LINE FLUSH Tramadol HCl 50 mg 01/01/19 16:52 Ultram PO Q6H PRN Pain, Moderate (4-6) Nutrition/Malnutrition Assess - Dietary Evaluation Nutrition/Malnutrition Findings: Nutrition Notes Start: 01/02/19 10:07 Freq: Status: Active Protocol: Document 01/02/19 10:07 ALEE (Rec: 01/02/19 11:11 ALEE [email or web address]) Co-Sign 01/02/19 10:07 KH Nutrition Notes Need for Assessment generated from: MD Order,Education Initial or Follow up Assessment Current Diagnosis Diabetes,Hypertension Other Pertinent Diagnosis DKA Current Diet NPO Labs/Tests Gluc- 262 Na 133 Pertinent Medications Reviewed Height 5 ft 8 in Weight 96.8 kg [place] Body Weight (kg) 70.00 BMI 32.4 Intake Prior to Admission Poor Weight change and time frame Pt had a 8% wt change in 1 month Subjective/Other Information RD consult for diet education. 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 Pt stated he lost 20lb in month. Pt also stated he was only eating bites of things during wt loss time period. Per pt request we brought more information on label reading and carb sources. Burn Absent Trauma Absent Minimum of two criteria Yes Energy Intake (severe) < or equal to 50% Estimated Energy Requirement > or equal to 5 days Interpretation of Weight Loss (severe) >5% in 1 month Protein-Calorie Malnutrition Non-Severe #1 Nutrition Diagnosis Malnutrition Etiology Loss of appetite, DKA As Evidenced by Signs and Symptoms 8% wt loss in 1 month, eating less than 50% estimated nutrient needs over the last 5 days, NPO status Is patient on ventilator? No Is Patient Ambulatory and/or Out of Bed Yes REE-([facility]-ambulatory/OOB) [ [id number] [id number]] Calculation Used for Recommendations [facility] Additional Notes Protein needs: 99g-124g/kg (1. 2g-1.5g adjBW 83kg) Fluid: 1ml/kcal Nutrition Intervention Change Diet Order: Advance diet when medically feasible Teaching Recipient Patient Learning Readiness Good Teaching Methods Discussion,Handout Response to Teaching Verbalize understanding Education Handouts Provided Consistent carb handout, label reading: carbohydrates Barriers to Learning No Barriers RD phone number provided Yes Patient aware of follow up options Yes Goal #1 Meet at least 90% of energy and protein needs Anticipated Discharge Needs: Consistent carb diet Follow-Up By: 01/07/19 Additional Comments F/U on PO intakes
[2019-01-02] MEDS: SODIUM CHLORIDE 0.9% 1000 ML 1,000 ML IV SCH ×2 (14:33→17:51)
[2019-01-02] MEDS: INSULIN REGULAR, HUMAN 100 UNITS/1 ML SUB-Q SCH ×3 (14:34→23:23)
[2019-01-02] MEDS: INSULIN GLARGINE 100 UNITS/ML SUB-Q SCH (14:36)
[2019-01-02] MEDS: HEPARIN 5,000 UNIT/1 ML VIAL SUB-Q SCH ×2 (14:37→23:23)
[2019-01-02] MEDS: metFORMIN 500 MG TAB PO SCH (17:49)
[2019-01-02] MEDS: carvediloL 25 MG TAB PO SCH (23:23)
--- NOTE | 2019-01-03 01:55 | Consultation ---
PULMONARY CRITICAL CARE CONSULT NOTE CONSULTING PHYSICIAN: Shady Pinedo M.D. REASON FOR CONSULTATION: Diabetic ketoacidosis. CHIEF COMPLAINT AND HISTORY OF PRESENT ILLNESS: The patient is a 58-year-old -Mong[place]ian male with past medical history significant amongst other things for the diagnosis of diabetes as well as chronic pain, came to the Emergency Room complaining of feeling sick for about 2-3 weeks. He admitted to polydipsia, polyuria, polyphagia, dizziness, nausea and vomiting. He also complained of floaters/blurry vision, symptoms really have been getting worse over the preceding 2-3 weeks. He felt that he had been poisoned because of the polydipsia and polyuria. He had also lost about 18 pounds in about a month. In the Emergency Room, he was found to be in DKA, was placed on DKA protocol, but up to the Intensive Care Unit where he was started on an IV insulin drip. Of note, he also denies any chest pains or palpitations. Denied any productive cough. He denied any open wounds or sores on his body. Denied any sick contacts. We are asked to assist with management. When I stopped by to see him, he was resting in bed, was on IV insulin drip that was running I think about 4 units per hour. He was feeling better, still a little bit blurry vision, but nothing more than that. He also admits to about a 10+ pack year tobacco smoking history and continues to smoke. This really is as much of the history of presentation as I have. I should mention he denies any medication noncompliance. PAST MEDICAL HISTORY: Significant again for diabetes, hypertension, hyperlipidemia, chronic pain and obesity. PAST SURGICAL HISTORY: Unknown. MEDICATIONS: He was on at the time I stopped by to see him were reviewed, pertinent medications included the following: Amlodipine 5 mg p.o. daily, all p.o. meds are on hold for now. Tessalon Perles 100 mg p.o. q.8 hours, Flexeril 10 mg p.o. t.i.d. p.r.n. muscle spasms, docusate sodium 100 mg p.o. b.i.d. p.r.n., Robaxin 500 mg p.o. b.i.d., tramadol 50 mg p.o. q.6 hours p.r.n. moderate pain. ALLERGIES: No known drug allergies. DIET: Obese gentleman. He thinks he has lost about 18 pounds in the preceding months. FAMILY AND SOCIAL HISTORY: Lives in the community, about a 10+ pack year tobacco smoking history. He does drink alcohol frequently. There is also family history of diabetes and hypertension. He denies illicit drug use or IV drug use or abuse. REVIEW OF SYSTEMS: As above, otherwise he denies any loss of consciousness. No new onset seizures. No new onset focal weakness. No gross hematochezia or melena. No gross hematuria or dysuria. No hematemesis. Denies palpitations, denies heat or cold intolerance. Denies periods of unexplained sadness and/or elation as may be consistent with psychiatric type disorders. Complete 13-system review of systems obtained. Pertinent positives and/or negatives as in body of history above, otherwise they are noncontributory. PHYSICAL EXAMINATION: VITAL SIGNS: At presentation, he was afebrile, temperature 98.9 degrees Fahrenheit with a pulse of 114, respiratory rate of 18, blood pressure 136/90, O2 sats were 96%, inspired oxygen concentration at that time was not recorded. When I stopped by to see him, O2 sats were 96% on room air. GENERAL: Middle-aged -Mongolian male. Normocephalic, atraumatic, talking to me in full sentences without significant respiratory distress at rest. HEAD, EYES, EARS, NOSE AND THROAT: He was anicteric, no conjunctival erythema. Oropharynx was moist. Mallampati #4 oropharynx. Large neck circumference. No gross jugular venous distention, no thyromegaly. Grossly, there were no palpable lymph nodes in the supraclavicular or submandibular lymph node chains. LUNGS: Auscultation of both lung yang unremarkable. Lungs were clear bilaterally. Good bilateral air movement. HEART: Heart sounds 1 and 2 are heard. They were regular in rate and rhythm at time of my evaluation without overt rubs or murmurs. ABDOMEN: Soft, full, bowel sounds are positive, nontender, no palpable hepatosplenomegaly. EXTREMITIES: Without overt digital clubbing, no cyanosis, no pedal edema. Pedal pulses are 2+ bilaterally. NEUROLOGIC: Pupils are equal, round, about 4 mm, reactive to light. Extraocular muscle movements are intact. He moved all 4 extremities spontaneously. No spasticity, no fasciculations. SKIN: Poor turgor, dry skin, scaly skin with evidence of xeroderma. No decubitus ulcers. PSYCHIATRIC: Mood was normal. Affect was appropriate. LABORATORY DATA: From my review are as follows: Admission white cell count was 5000 with hemoglobin of 6.8, hematocrit of 50.6, platelet count of 139. Venous blood gas, pH was 7.38. Serum sodium was 122, potassium 5.3, chloride 80, bicarbonate 16, BUN was 33, creatinine was 1.2, glucose was 1000. Mag and phos were within normal limits. Liver function tests essentially within normal limits. Urinalysis was negative for nitrites and leukocyte esterase, otherwise bland. Anion gap was elevated at 36. Most recent BMP shows serum sodium 137, potassium 3.7, chloride 93, bicarbonate 25 with an anion gap of 17, BUN 22, creatinine 0.7. No microbiology studies. No radiographic studies. ASSESSMENT: 1. Diabetic ketoacidosis. 2. Metabolic acidosis with a high anion gap. 3. Obesity. 4. Thrombocytopenia. 5. Hemoconcentration. 6. Hyponatremia, likely related to the hyperglycemia. 7. Obesity. 8. History of hypertension. 9. Chronic low back pain. PLAN: His numbers look better. His gap is closed. I will go ahead and transition him to long-acting insulin. I will also put him on a sliding scale. Tobacco abstinence has been strongly counseled. Diabetic education will be done. He will be placed on GI and DVT prophylaxis. Chronic home medications will be reintroduced. Flu and pneumonia vaccination will be addressed per protocol. Thank you very much for the consult, Dr. Pinedo. We will follow along and make further recommendations as picture progresses/becomes clearer. I have also advised weight loss and advised Sleep Clinic evaluation for possible obstructive sleep apnea. JOB# [id number] MICHAEL/EASTON SHIELDS
[2019-01-03] MEDS: HEPARIN 5,000 UNIT/1 ML VIAL SUB-Q SCH (07:00)
[2019-01-03] MEDS: BENZONATATE 100 MG CAP PO SCH (07:00)
[2019-01-03] MEDS: SODIUM CHLORIDE 0.9% 1000 ML 1,000 ML IV SCH (07:00)
[2019-01-03] MEDS: HYDROcodone/ACETAMINOPHEN 5-325 MG TAB PO PRN (07:07)
--- NOTE | 2019-01-03 08:24 | Discharge Summary ---
Providers - Providers Date of Admission: 01/01/19 16:42 Date of discharge: 01/03/19 Attending physician: ALAN MATIAS 01/01/19 16:43 Consult to Dietitian/Nutrition [CONS] Routine Physician Instructions: Reason For Exam: Reason for Consult: Diet education 01/02/19 10:34 Consult to Physician [CONS] Routine Comment: Consulting Provider: OLIVIA RHODES Physician Instructions: Reason For Exam: critical care management/DKA Primary care physician: SALESPERSON CORSETS Hospitalization Reason for admission: DKA Condition: Stable Hospital course: 58-year-old male with PMH Obesity, HTN, LDD complicated by Chronic Pain who presented through the emergency department with complaints of polydipsia and polyuria. Patient was admitted with diagnosis of new onset diabetes mellitus with DKA. The patient was admitted to the ICU and started on insulin drip and later transitioned to long-acting insulin Lantus as well as metformin. Patient's BG improved and stablized. Patient received diabetic education per nursing. Patient was felt to have received maximal hospital benefit and will be discharged home. Dedicated discharge from 35 minutes. Disposition: DC-30 STILL A PATIENT Core Measure Documentation - Palliative Care Palliative Care/ Comfort Measures: Not Applicable - Core Measures Any of the following diagnoses?: none Exam - Constitutional Vitals: Temp Pulse Resp BP Pulse Ox 98.0 F 78 16 109/80 96 01/03/19 05:41 01/03/19 05:41 01/03/19 05:41 01/03/19 05:41 01/03/19 05:41 Plan Activity: no restrictions Weight Bearing Status: Weight Bear as Tolerated Diet: diabetic Follow up with: PRIMARY CARE, [Primary Care Provider] - 3-5 Days Prescriptions: Syringe and Needle,Insulin,1Ml [Advocate Syringes] 1 each MC TID #1 box Carvedilol [Coreg] 25 mg PO BID #60 Lancets/Blood Glucose Strips [Fora [id number] Strp-Lnct] 1 each MC TID #1 combo..pkg metFORMIN [Glucophage] 1,000 mg PO BIDDIAB #60 tablet hydroCHLOROthiazide [HCTZ] 25 mg PO QDAY #30 Insulin Glargine [Lantus VIAL] 10 units SUB-Q DAILY 30 Days units HYDROcodone/APAP 10-325 [Cushing 10-325 mg TAB] 1 each PO Q8HR PRN #12 PRN Reason: Pain
[2019-01-03] MEDS: INSULIN REGULAR, HUMAN 100 UNITS/1 ML SUB-Q SCH ×2 (09:25→12:47)
[2019-01-03] MEDS ORDERED: hydroCHLOROthiazide 25 MG TAB PO SCH (10:00)
[2019-01-03] MEDS: INSULIN GLARGINE 100 UNITS/ML SUB-Q SCH (10:10)
--- NOTE | 2019-01-03 10:53 | Progress Note ---
Assessment and Plan Diabetic ketoacidosis. Metabolic acidosis with a high anion gap. Obesity. Thrombocytopenia. Hemoconcentration. Hyponatremia, likely related to the hyperglycemia. Obesity. History of hypertension. Chronic low back pain. - continue glycemic control with SSI for target BG < 180 mg/dl - tobacco abstinence counseled - diabetic education - GI & VTE prophylaxis - PT/OT - discharge planning ongoing concurrently ... re-evaluate in am & prn Subjective Date of service: 01/03/19 Principal diagnosis: DKA; HAGMA; Obesity; Thrombocytopenia; Hyponatremia; Obesity; HTN Interval history: Patient is seen today for: Diabetic ketoacidosis; HAGMA; Obesity; Thrombocytopenia; Hemoconcentration; Hyponatremia; Obesity; hypertension; Chronic low back pain. Seen and examined at bedside; 24hour events reviewed; nursing and respiratory care staff consulted; no adverse overnight events reported to me; looks and feels better; denies acute chest pains or palpitations; No N/V/F/C Objective Vital Signs - 12hr 01/02/19 01/03/19 23:14 05:41 Temperature 98.1 F 98.0 F Pulse Rate 88 78 Respiratory 18 16 Rate Blood Pressure 115/77 109/80 O2 Sat by Pulse 100 96 Oximetry Constitutional: no acute distress, other (middle aged AAM normocephalic and atraumatic) Eyes: non-icteric ENT: oropharynx moist Neck: supple, no lymphadenopathy, no JVD Effort: normal Ascultation: Bilateral: clear Percussion: Bilateral: not dull Cardiovascular: regular rate and rhythm Gastrointestinal: normoactive bowel sounds, soft, non-tender, non-distended Integumentary: other (xeroderma) Extremities: no cyanosis, no edema, pulses normal, no ischemia or petechiae Neurologic: normal mental status, non-focal exam, pupils equal and round, CN II-XII normal Psychiatric: mood appropriate, affect normal CBC and BMP: 01/01/19 13:51 01/02/19 08:46 Abnormal lab findings: Abnormal Labs 01/01/19 01/01/19 01/01/19 13:51 13:51 14:45 RBC 5.72 H Hgb 16.8 H Hct 50.6 H RDW 13.0 L Plt Count 139 L Monocytes % (Manual) 11.0 H Seg Neutrophils # Man 0.0 L Lymphocytes # (Manual) 0.0 L Sodium 122 L Potassium 5.3 H Chloride 80.0 L Carbon Dioxide 16 L BUN 33 H Creatinine Glucose 1000 H* POC Glucose > 500 H Total Protein 8.4 H 01/01/19 01/01/19 01/01/19 16:54 18:20 18:55 RBC Hgb Hct RDW Plt Count Monocytes % (Manual) Seg Neutrophils # Man Lymphocytes # (Manual) Sodium 124 L 125 L Potassium Chloride 85.8 L 86.8 L Carbon Dioxide 21 L BUN 29 H 28 H Creatinine Glucose 699 H* 684 H* POC Glucose 444 H Total Protein 01/01/19 01/01/19 01/01/19 19:55 20:40 21:12 RBC Hgb Hct RDW Plt Count Monocytes % (Manual) Seg Neutrophils # Man Lymphocytes # (Manual) Sodium 131 L Potassium Chloride 92.1 L Carbon Dioxide BUN 22 H Creatinine Glucose 365 H POC Glucose 361 H 295 H Total Protein 01/01/19 01/01/19 01/02/19 22:16 23:32 00:25 RBC Hgb Hct RDW Plt Count Monocytes % (Manual) Seg Neutrophils # Man Lymphocytes # (Manual) Sodium 133 L Potassium Chloride 93.0 L Carbon Dioxide BUN 22 H Creatinine Glucose 262 H POC Glucose 267 H 261 H Total Protein 01/02/19 01/02/19 01/02/19 00:26 01:17 02:13 RBC Hgb Hct RDW Plt Count Monocytes % (Manual) Seg Neutrophils # Man Lymphocytes # (Manual) Sodium Potassium Chloride Carbon Dioxide BUN Creatinine Glucose POC Glucose 239 H 233 H 224 H Total Protein 01/02/19 01/02/19 01/02/19 03:13 04:12 05:15 RBC Hgb Hct RDW Plt Count Monocytes % (Manual) Seg Neutrophils # Man Lymphocytes # (Manual) Sodium Potassium Chloride Carbon Dioxide BUN Creatinine Glucose POC Glucose 222 H 198 H 192 H Total Protein 01/02/19 01/02/19 01/02/19 06:09 07:11 08:10 RBC Hgb Hct RDW Plt Count Monocytes % (Manual) Seg Neutrophils # Man Lymphocytes # (Manual) Sodium Potassium Chloride Carbon Dioxide BUN Creatinine Glucose POC Glucose 202 H 204 H 149 H Total Protein 01/02/19 01/02/19 01/02/19 08:46 09:19 10:18 RBC Hgb Hct RDW Plt Count Monocytes % (Manual) Seg Neutrophils # Man Lymphocytes # (Manual) Sodium 132 L Potassium Chloride 93.4 L Carbon Dioxide BUN 22 H Creatinine 0.7 L Glucose 200 H POC Glucose 175 H 176 H Total Protein 01/02/19 01/02/19 01/02/19 11:18 12:27 13:35 RBC Hgb Hct RDW Plt Count Monocytes % (Manual) Seg Neutrophils # Man Lymphocytes # (Manual) Sodium Potassium Chloride Carbon Dioxide BUN Creatinine Glucose POC Glucose 168 H 155 H 174 H Total Protein 01/02/19 01/02/19 01/02/19 14:07 15:13 17:18 RBC Hgb Hct RDW Plt Count Monocytes % (Manual) Seg Neutrophils # Man Lymphocytes # (Manual) Sodium Potassium Chloride Carbon Dioxide BUN Creatinine Glucose POC Glucose 221 H 191 H 212 H Total Protein 01/02/19 01/03/19 21:24 07:42 RBC Hgb Hct RDW Plt Count Monocytes % (Manual) Seg Neutrophils # Man Lymphocytes # (Manual) Sodium Potassium Chloride Carbon Dioxide BUN Creatinine Glucose POC Glucose 383 H 280 H Total Protein Chest x-ray: pending Allied health notes reviewed: nursing
[2019-01-03] MEDS: NAPROXEN 500 MG TAB PO SCH (11:10)
[2019-01-03] MEDS: carvediloL 25 MG TAB PO SCH (11:12)
[2019-01-03 11:13] VITALS: BP 119/76
[2019-01-03] MEDS: amLODIPine 5 MG TAB PO SCH (11:13)
[2019-01-03] MEDS: metFORMIN 500 MG TAB PO SCH (11:45)
== END 2019-01-03 16:46 | disposition home or self-care (01) | DRG 638 ==
LOC: ED 15:31 → CC1 16:42 → 3A 01-02 16:24
PROVIDERS: ADMIT Internal Medicine; ATTEND Hospitalist
DX: E11.10 Type 2 diabetes mellitus with ketoacidosis without coma (principal); E87.1 Hypo-osmolality and hyponatremia; I10 Essential (primary) hypertension; E66.9 Obesity, unspecified; D69.6 Thrombocytopenia, unspecified; M54.5 Low back pain; F17.200 Nicotine dependence, unspecified, uncomplicated; N28.9 Disorder of kidney and ureter, unspecified; E86.0 Dehydration; G89.4 Chronic pain syndrome; Z82.49 Family history of ischemic heart disease and other diseases of the circulatory system; Z83.3 Family history of diabetes mellitus; Z68.32 Body mass index [BMI] 32.0-32.9, adult; Z79.899 Other long term (current) drug therapy
CPT/HCPCS: 36415; 80048; 80053; 81001; 82805; 82962; 83735; 84100; 85007; 85025; 94640; 99406; G0378; J1644; J1815; J7030